=== PATIENT | male | born 1975 | race Caucasian/White ===

== ENCOUNTER 2022-03-30 13:27 | Inpatient (IN) ==
[2022-03-30] MEDS ORDERED: SODIUM CHLORIDE 0.9% 1,000 ML IV STA (13:44)
[2022-03-30 14:02] LABS: Basophils % 0.2 % (0.0-0.8); Hematocrit 55.1 VOL% (42.0-52.0); Hemoglobin 19.1 GM/DL (14.0-18.0); Immature Granulocytes % 0.5 %; Lymphocytes # 0.4 10*3/uL (1.4-4.0); Mean Corpuscular HGB Conc 34.7 GM/DL (32-36); Mean Corpuscular Volume 88.9 FL (87-102); Mean Platelet Volume 9.6 FL (9.6-12.0); Monocytes # 1.1 10*3/uL (0.11-0.8); Monocytes % 5.4 % (1.7-12.7); Neutrophils % 91.9 % (38.7-73.9); Platelet Count 150 T/CUMM (130-400); Red Cell Distribution Width 14.1 % (9.3-17.3); White Blood Count 20.1 T/CUMM (4-12)
[2022-03-30 14:23] LABS: Albumin 3.9 G/DL (3.4-5.0); Bilirubin,Total 0.8 MG/DL (0.20-1.00); Calcium 8.9 MG/DL (8.5-10.1); Osmolality,Calculated 282.3 MOS/KG (273-304); Potassium 3.7 MMOL/L (3.5-5.1); Total Protein 7.2 G/DL (6.4-8.2)
[2022-03-30 14:28] LABS: Band Neutrophils 5 % (0-10); Eosinophils 1 % (0-10); Lymphocytes 1 % (20-55); Total Cells Counted 100
[2022-03-30 14:30] LABS: Platelet Estimate Normal
[2022-03-30] MEDS ORDERED: ONDANSETRON 4 MG/2 ML VIAL IV STA ×2 (14:33→15:03)
[2022-03-30] MEDS ORDERED: KETOROLAC 30 MG/1 ML VIAL IV STA (14:33)
[2022-03-30] MEDS ORDERED: HYDROmorphone 1 MG/1 ML SYRINGE IV STA (15:03)
[2022-03-30] MEDS ORDERED: CLINDAMYCIN INJ 900 MG/50 ML PREMIX IV ONE (15:11)
[2022-03-30] MEDS ORDERED: LIDOCAINE 2% 5 ML VIAL ONE (15:15)
[2022-03-30] MEDS ORDERED: propofoL 200 MG/20 ML VIAL IV ONE (15:15)
[2022-03-30] MEDS ORDERED: DEXAMETHASONE 4 MG/1 ML VIAL ONE (15:15)
[2022-03-30] MEDS ORDERED: ONDANSETRON 4 MG/2 ML VIAL ONE (15:15)
[2022-03-30] MEDS ORDERED: fentaNYL 100 MCG/2 ML VIAL ONE (15:16)
[2022-03-30] MEDS ORDERED: PIPERACILLIN/TAZOBACTAM 3,375 MG in SODIUM CHLORIDE 0.9% 100 ML IV STA (15:20)
[2022-03-30] MEDS ORDERED: ONDANSETRON 4 MG/2 ML VIAL IV PRN (15:20)
[2022-03-30] MEDS ORDERED: ACETAMINOPHEN 325 MG TABLET PO PRN (15:20)
[2022-03-30] MEDS ORDERED: METOCLOPRAMIDE 10 MG/2 ML VIAL ONE (15:37)
[2022-03-30] MEDS ORDERED: LACTATED RINGERS 2,000 ML IV ONE (15:55)
[2022-03-30] MEDS ORDERED: TISSUE ADHESIVE 1 EACH APPLICATOR TOP ONE (16:19)
[2022-03-30] MEDS ORDERED: HYDROmorphone 1 MG/1 ML SYRINGE ONE (16:26)
[2022-03-30] MEDS ORDERED: SEVOFLURANE 1 UNIT/15 MINUTE INH ONE (16:34)
[2022-03-30] MEDS ORDERED: ACETAMINOPHEN INJ 1,000 MG/100 ML VIAL IV ONE (16:34)
[2022-03-30] MEDS ORDERED: PIPERACILLIN/TAZOBACTAM 3,375 MG VIAL IV ONE (16:47)
[2022-03-30] MEDS ORDERED: SODIUM CHLORIDE 0.9% 250 ML IV ONE (16:49)
[2022-03-30] MEDS ORDERED: GLYCOPYRROLATE 0.4 MG/2 ML VIAL ONE (16:53)
[2022-03-30] MEDS ORDERED: NEOSTIGMINE 10 MG/10 ML VIAL ONE (16:54)
[2022-03-30] MEDS: LACTATED RINGERS 1,000 ML IV SCH ×2 (17:25→23:30)
[2022-03-30] MEDS: HYDROmorphone 1 MG/1 ML SYRINGE IV PRN ×2 (18:44→21:24)
[2022-03-31] MEDS: HYDROmorphone 1 MG/1 ML SYRINGE IV PRN ×6 (02:13→17:37)
[2022-03-31 06:12] LABS: Basophils % 0.1 % (0.0-0.8); Hematocrit 51.8 VOL% (42.0-52.0); Hemoglobin 17.6 GM/DL (14.0-18.0); Immature Granulocytes % 0.8 %; Immature Granulocytes Absolute 0.13 #; Lymphocytes # 0.9 10*3/uL (1.4-4.0); Lymphocytes % 5.4 % (21.2-54.2); Mean Corpuscular Volume 90.4 FL (87-102); Mean Platelet Volume 9.7 FL (9.6-12.0); Monocytes # 0.8 10*3/uL (0.11-0.8); Neutrophils % 88.7 % (38.7-73.9); Platelet Count 110 T/CUMM (130-400); Red Blood Count 5.73 MC/CUMM (3.8-5.5); Red Cell Distribution Width 14.5 % (9.3-17.3); White Blood Count 16.2 T/CUMM (4-12)
[2022-03-31 06:35] LABS: Calcium 8.5 MG/DL (8.5-10.1); Osmolality,Calculated 273.8 MOS/KG (273-304); Potassium 3.9 MMOL/L (3.5-5.1)
[2022-03-31 06:38] LABS: Band Neutrophils 4 % (0-10); Lymphocytes 7 % (20-55); Microcytosis Slight; Total Cells Counted 100
[2022-03-31 06:39] LABS: Platelet Estimate Adequate
[2022-03-31] MEDS: PIPERACILLIN/TAZOBACTAM 3,375 MG in SODIUM CHLORIDE 0.9% 100 ML IV SCH ×3 (08:28→23:43)
[2022-03-31] MEDS: LACTATED RINGERS 1,000 ML IV SCH ×3 (08:28→23:42)
[2022-03-31] MEDS ORDERED: LACTATED RINGERS 1,000 ML IV ONE (13:12)
[2022-03-31 18:19] LABS: Mucus,Urine Occasional /LPF (Occasional); Protein,Urine 100 mg/dL (Negative); RBC,Urine 254 /HPF (0-4); Urine Appearance Clear (Clear); Urine Color Yellow (Yellow)
[2022-03-31 18:20] LABS: Bilirubin,Urine Negative (Negative); Blood, Urine Large mg/dL (Negative); Glucose,Urine (UA) Negative (Negative); Ketones,Urine 15 mg/dL (Negative); Nitrite,Urine Negative (Negative)
[2022-04-01 04:51] LABS: Basophils % 0.1 % (0.0-0.8); Eosinophils % 0.2 % (0.00-10.9); Hematocrit 50.2 VOL% (42.0-52.0); Hemoglobin 16.9 GM/DL (14.0-18.0); Immature Granulocytes % 0.6 %; Immature Granulocytes Absolute 0.07 #; Lymphocytes # 0.7 10*3/uL (1.4-4.0); Lymphocytes % 5.7 % (21.2-54.2); Mean Corpuscular HGB Conc 33.7 GM/DL (32-36); Mean Corpuscular Volume 91.8 FL (87-102); Mean Platelet Volume 10.3 FL (9.6-12.0); Monocytes # 0.6 10*3/uL (0.11-0.8); Monocytes % 4.6 % (1.7-12.7); Neutrophils % 88.8 % (38.7-73.9); Platelet Count 99 T/CUMM (130-400); Red Blood Count 5.47 MC/CUMM (3.8-5.5); White Blood Count 12.1 T/CUMM (4-12)
[2022-04-01 05:16] LABS: Calcium 8.6 MG/DL (8.5-10.1); Osmolality,Calculated 273.7 MOS/KG (273-304); Potassium 3.5 MMOL/L (3.5-5.1)
[2022-04-01 05:23] LABS: Platelet Estimate Decreased
[2022-04-01] MEDS: PIPERACILLIN/TAZOBACTAM 3,375 MG in SODIUM CHLORIDE 0.9% 100 ML IV SCH (06:34)
[2022-04-01] MEDS: LACTATED RINGERS 1,000 ML IV SCH (09:13)
[2022-04-01 11:53] VITALS: BP 154/99
== END 2022-04-01 15:00 | disposition home or self-care (01) | DRG 340 ==
LOC: N.ED 13:27 → N.EDINP 15:20 → N.3E 15:30
PROVIDERS: ADMIT Student in an Organized Health Care Education/Training Program; ATTEND Student in an Organized Health Care Education/Training Program